=== PATIENT | female | born 1970 | race Hispanic/Latino ===

== ENCOUNTER 2018-06-03 09:47 | Inpatient (IN) | payer OTHER, SELFPAY ==
[2018-06-03 10:20] LABS: Basophils # (Auto) 0.1 K/mm3 (0.0-0.1); Basophils % (Auto) 0.6 % (0.0-1.8); Eosinophils % (Auto) 0.3 % (0.0-4.3); Hematocrit 38.1 % (30.3-42.9); Lymphocytes # (Auto) 1.6 K/mm3 (1.2-5.4); Lymphocytes % (Auto) 12.6 % (13.4-35.0); Mean Corpuscular HGB Conc 34 % (30-34); Mean Corpuscular Volume 104 fl (79-97); Monocytes # (Auto) 0.8 K/mm3 (0.0-0.8); Monocytes % (Auto) 6.4 % (0.0-7.3); Platelet Count 215 K/mm3 (140-440); Red Blood Count 3.66 M/mm3 (3.65-5.03)
[2018-06-03 10:44] LABS: BUN/Creatinine Ratio 8; Blood Urea Nitrogen 5 mg/dL (7-17); Calcium 9.2 mg/dL (8.4-10.2); Hemolysis Index 6
[2018-06-03] MEDS ORDERED: TESSALON PERLES PO ONE ×3 (11:16→11:55)
[2018-06-03] MEDS ORDERED: SUBLIMAZE IV ONE ×2 (11:16→12:36)
[2018-06-03] MEDS ORDERED: NACL 0.9% 1000 ML 1,000 ML IV ONE (11:16)
[2018-06-03] MEDS ORDERED: ZOFRAN IV ONE (11:16)
[2018-06-03] MEDS ORDERED: LEVAQUIN PO ONE (11:20)
[2018-06-03] MEDS ORDERED: TORADOL IV ONE (11:28)
--- NOTE | 2018-06-03 11:28 | Emergency Department Report ---
HPI - General Chief Complaint: Dyspnea/Respdistress Time Seen by Provider: 06/03/18 11:05 - HPI HPI: Room 22 The patient is a 48-year-old female presenting with a chief complaint of shortness of breath. The patient states for the past 2 days she has shortness of breath with pleurisy and cough. The patient states for the past 2 days she has had a cough occasionally productive of white sputum. Patient admits to subjective fever and sharp left-sided chest pain whenever she coughs. Patient states she has had rhinorrhea. Patient denies nausea/vomiting. Location: Lungs Duration: 2 Days Quality: Soreness Severity: 12/08 Modifying factors: [see above] Context: [see above] Mode of transportation: [not driving] ED Past Medical Hx - Past Medical History Previous Medical History?: Yes Hx Arthritis: Yes Hx Asthma: Yes - Surgical History Past Surgical History?: Yes Additional Surgical History: lumpectomy. bone spurs. tubal ligation. tonsillectomy - Family History Family history: no significant - Social History Smoking Status: Current Every Day Smoker (1/2 pack per day) Substance Use Type: None (denies illicit drug use), Alcohol ED Review of Systems ROS: Stated complaint: SEVERE PAIN RIB CAGE/CONGESTION/COLD SX Other details as noted in HPI Constitutional: diaphoresis, fever (subjective) Eyes: denies: eye pain ENT: denies: throat pain Respiratory: cough, shortness of breath Cardiovascular: denies: palpitations Endocrine: no symptoms reported Gastrointestinal: denies: abdominal pain Genitourinary: denies: dysuria Musculoskeletal: myalgia Neurological: denies: headache Physical Exam - Physical Exam Vital Signs: Vital Signs 06/03/18 06/03/18 06/03/18 09:58 11:02 11:03 Temperature 98.7 F 98.1 F Pulse Rate 120 H 108 H Respiratory 16 17 17 Rate Blood Pressure 126/66 Blood Pressure 124/76 [Left] O2 Sat by Pulse 97 96 96 Oximetry Physical Exam: GENERAL: The patient is well-developed well-nourished female lying on a stretcher appearing to be in mild discomfort. [] HEENT: Normocephalic. Atraumatic. Extraocular motions are intact. Patient has moist mucous membranes. NECK: Supple. Trachea midline CHEST/LUNGS: Clear to auscultation. There is no respiratory distress noted. HEART/CARDIOVASCULAR: Regular. There is tachycardia. There is no gallop rub or murmur. ABDOMEN: Abdomen is soft, nontender. Patient has normal bowel sounds. There is no abdominal distention. SKIN: There is no rash. There is no edema. There is no diaphoresis. NEURO: The patient is awake, alert, and oriented. The patient is cooperative. The patient has normal speech MUSCULOSKELETAL: There is no evidence of acute injury. ED Course Vital Signs 06/03/18 06/03/18 06/03/18 09:58 11:02 11:03 Temperature 98.7 F 98.1 F Pulse Rate 120 H 108 H Respiratory 16 17 17 Rate Blood Pressure 126/66 Blood Pressure 124/76 [Left] O2 Sat by Pulse 97 96 96 Oximetry - Reevaluation(s) Reevaluation #1: 06/03/18 12:34 Patient states she still has significant pain with inspiration. Patient gives her pain a score of 7/10. ED Medical Decision Making - Lab Data Result diagrams: 06/03/18 10:10 06/03/18 10:10 - EKG Data -: EKG Interpreted by Me EKG shows normal: sinus rhythm Rate: tachycardia (111 bpm) - EKG Data When compared to previous EKG there are: previous EKG unavailable Interpretation: other (no ischemic changes seen) - Radiology Data Radiology results: image reviewed (chest x-ray) interpreted by me: Chest x-ray- left lower lobe infiltrate - Differential Diagnosis pneumonia, pneumothorax, pleurisy Critical care attestation.: If time is entered above; I have spent that time in minutes in the direct care of this critically ill patient, excluding procedure time. ED Disposition Clinical Impression: Pneumonia, Pleurisy, Shortness of breath Disposition: OP ADMIT IP TO THIS HOSP Is pt being admited?: Yes Does the pt Need Aspirin: Yes Condition: Fair Instructions: Bacterial Pneumonia (ED) Referrals: LJ CAMPBELL [Primary Care Provider] - 3-5 Days Time of Disposition: 12:35 (hospitalist paged (Dr Bustamante))
[2018-06-03] MEDS ORDERED: SUBLIMAZE ONE (11:33)
[2018-06-03] MEDS ORDERED: NACL 0.9% 1000 ML 1,000 ML ONE (11:33)
[2018-06-03] MEDS ORDERED: ZOFRAN ONE ×2 (11:33→11:35)
[2018-06-03] MEDS ORDERED: TORADOL ONE (11:54)
[2018-06-03] MEDS ORDERED: LEVAQUIN ONE (11:57)
[2018-06-03] MEDS ORDERED: ASPIRIN PO ONE (12:35)
--- NOTE | 2018-06-03 14:05 | XRay Report ---
FINAL REPORT EXAM: XR CHEST ROUTINE 2V HISTORY: Shortness of breath TECHNIQUE: Chest, two views PRIORS: None. FINDINGS: There is left lower lobe infiltrate which is concerning for pneumonia. Right lung is clear. There is no cardiomegaly, congestion, pneumothorax or pleural effusion seen. IMPRESSION: Left lower lobe pneumonia
[2018-06-03] MEDS ORDERED: ZOFRAN IV PRN (14:21)
[2018-06-03] MEDS ORDERED: TYLENOL PO PRN (14:21)
[2018-06-03] MEDS ORDERED: SODIUM CHLORIDE FLUSH SYRINGE 10 ML IV PRN (14:21)
[2018-06-03] MEDS ORDERED: DUONEB *Not for PRN Use IH (14:23)
[2018-06-03] MEDS ORDERED: PROVENTIL IH PRN (14:51)
[2018-06-03] MEDS ORDERED: PEPCID IV ONE (15:09)
[2018-06-03] MEDS ORDERED: LOVENOX SUB-Q ONE (15:20)
[2018-06-03] MEDS: PEPCID IV SCH ×2 (15:26→21:44)
[2018-06-03] MEDS: LOVENOX SUB-Q SCH (15:26)
[2018-06-03] MEDS: ZITHROMAX 500 MG in NACL 0.9% 250ML 250 ML IV SCH (15:26)
[2018-06-03 16:12] LABS: Bacteria,Urine 1+ /HPF (Negative); Bilirubin,Urine NEG (Negative); Blood,Urine NEG (Negative); Color,Urine Yellow (Yellow); Mucus,Urine FEW /HPF; Protein,Urine <15 mg/dL mg/dL (Negative); Urobilinogen,Urine < 2.0 mg/dL (<2.0)
[2018-06-03] MEDS: NACL 0.9% 1000 ML 1,000 ML IV SCH (16:29)
[2018-06-03] MEDS: PERCOCET 5/325 PO PRN (16:57)
[2018-06-03] MEDS: ROCEPHIN/NS 2 GM/100 ML 2 GM/100 ML BAG IV SCH (16:58)
[2018-06-03] MEDS: SODIUM CHLORIDE FLUSH SYRINGE 10 ML IV SCH (21:44)
[2018-06-03] MEDS: DILAUDID IV PRN (21:44)
--- NOTE | 2018-06-04 01:05 | Event Note ---
Date: 06/03/18 See Dictated H/p in reports LLL Pneumonia COPD
--- NOTE | 2018-06-04 01:30 | History and Physical Report ---
CHIEF COMPLAINT: Increasing shortness of breath for the last 2 days and cough for 2 days, also fever for 2 days. HISTORY OF PRESENT ILLNESS: A 48-year-old with history of arthritis and asthma, presents with shortness of breath and left-sided chest pain and cough, also low-grade fever. Cough productive of mucoid sputum. The left infra-axillary chest pain, more on inspiration. Exacerbating factor is cough and inspiration. Relieving factor is less. No exertional chest pain. No chills. No recent travel. PAST MEDICAL HISTORY: Significant for arthritis and asthma. PAST SURGICAL HISTORY: Significant for lumpectomy, bone spurs tubal ligation and tonsillectomy. FAMILY HISTORY: No significant family history. SOCIAL HISTORY: Smokes over half a pack a day. REVIEW OF SYSTEMS: Significant for cough and fever and left infra-axillary region chest pain, which is more on breathing, taking deep inspiration. PHYSICAL EXAMINATION: GENERAL: Middle-aged female, cooperative during examination. VITAL SIGNS: Blood pressure was 121/67, temperature was 98.3, pulse is 120-99, sats are 99%. Respiratory rate is 16. HEENT: Unremarkable. Pupils equal and reactive. NECK: Supple, no lymphadenopathy, no thyromegaly. LUNGS: Scattered rhonchi bilaterally. CARDIOVASCULAR: S1, S2 heard. No gallop, no murmur, no rub. Apical impulse in left fifth intercostal space and midclavicular line. ABDOMEN: Soft and benign. No hepatosplenomegaly. No guarding, no rigidity. Hernial orifices are normal. EXTREMITIES: Good pedal pulses. No pedal edema. CENTRAL NERVOUS SYSTEM: Alert and oriented x 4, nonfocal exam. LABORATORY DATA: White count is 12,700, slightly high; hemoglobin is 13 and hematocrit is 38.1, platelet count is normal. Sodium is 133, slightly low, BUN and creatinine is 75 and 0.6, glucose is slightly high 115. Urine shows epithelial cells 21, otherwise normal. Chest x-ray shows left lower lobe infiltrate. ASSESSMENT AND PLAN: 1. Left lower lobe pneumonia. The patient initiated on ceftriaxone and azithromycin. 2. Chronic obstructive pulmonary disease exacerbation. The patient initiated on DuoNeb and antibiotics. No steroids at this point. 3. Hyperglycemia, mild. Check hemoglobin A1c. 4. Deep venous thrombosis prophylaxis, Lovenox and famotidine 20 mg twice a day. 5.Hyponatremia-Mild.Should correct with IV Fluids JOB# [id number] DELMER/VIKI VALENZUELA
[2018-06-04] MEDS: DILAUDID IV PRN (05:13)
[2018-06-04 06:01] LABS: Basophils % (Auto) 0.4 % (0.0-1.8); Eosinophils # (Auto) 0.1 K/mm3 (0.0-0.4); Eosinophils % (Auto) 0.9 % (0.0-4.3); Hematocrit 34.6 % (30.3-42.9); Hemoglobin 11.9 gm/dl (10.1-14.3); Lymphocytes # (Auto) 1.8 K/mm3 (1.2-5.4); Lymphocytes % (Auto) 24.9 % (13.4-35.0); Mean Corpuscular HGB Conc 35 % (30-34); Mean Corpuscular Volume 105 fl (79-97); Monocytes # (Auto) 0.4 K/mm3 (0.0-0.8); Monocytes % (Auto) 5.4 % (0.0-7.3); Platelet Count 200 K/mm3 (140-440); Red Cell Distribution Width 14.9 % (13.2-15.2)
[2018-06-04 06:27] LABS: Albumin 3.5 g/dL (3.9-5); BUN/Creatinine Ratio 12; Blood Urea Nitrogen 6 mg/dL (7-17); Calcium 8.7 mg/dL (8.4-10.2); Hemolysis Index 3
[2018-06-04 06:31] LABS: Alanine Aminotransferase < 5 units/L (7-56)
[2018-06-04] MEDS: NACL 0.9% 1000 ML 1,000 ML IV SCH (08:33)
[2018-06-04] MEDS: SODIUM CHLORIDE FLUSH SYRINGE 10 ML IV SCH ×2 (10:40→22:16)
[2018-06-04] MEDS: PEPCID IV SCH (10:40)
[2018-06-04] MEDS: PERCOCET 5/325 PO PRN ×2 (10:47→22:15)
[2018-06-04] MEDS ORDERED: PNEUMOVAX 23 IM ONE (12:00)
[2018-06-04] MEDS ORDERED: AFLURIA QUAD 2018-2019 SYRINGE IM ONE (12:00)
--- NOTE | 2018-06-04 13:05 | Progress Note ---
Assessment and Plan Sepsis, POA - due to LLL PNA, cont abx LLL PNA, cont abx COPD with mild exacerbation, treat with nebs, supplemental o2 Mild hyponatremia, treated with iv fluid Chronic back pain, pain mx as needed Obesity, provided dietary recommendation Dvt Px, lovenox Subjective Date of service: 06/04/18 Interval history: Pt seen and examined states feels better but has SOB on exertion also c/o chronic back pain Objective - Constitutional Vitals: Vital Signs - 12hr 06/04/18 06/04/18 05:13 05:43 Temperature 98.5 F Pulse Rate 105 H Respiratory 18 17 Rate Blood Pressure 108/57 O2 Sat by Pulse 95 Oximetry General appearance: Present: no acute distress, obese - EENT Eyes: PERRL, EOM intact ENT: hearing intact, clear oral mucosa Ears: bilateral: normal - Neck Neck: supple, normal ROM - Respiratory Respiratory effort: normal Respiratory: bilateral: diminished - Cardiovascular Rhythm: regular Heart Sounds: Present: S1 & S2. Absent: gallop, rub Extremities: pulses intact, No edema, normal color, Full ROM - Gastrointestinal General gastrointestinal: Present: soft, non-tender, non-distended, normal bowel sounds - Genitourinary Female genitourinary: normal - Integumentary Integumentary: clear, warm, dry - Musculoskeletal Musculoskeletal: 1, strength equal bilaterally - Neurologic Neurologic: moves all extremities - Psychiatric Psychiatric: memory intact, appropriate mood/affect, intact judgment & insight - Labs CBC & Chem 7: 06/04/18 05:24 06/04/18 05:24 Labs: Abnormal lab results 06/03/18 06/04/18 06/04/18 Range/Units Unknown 05:24 05:24 RBC 3.30 L (3.65-5.03) M/mm3 MCV 105 H (79-97) fl MCH 36 H (28-32) pg MCHC 35 H (30-34) % Potassium 3.5 L (3.6-5.0) mmol/L BUN 6 L (7-17) mg/dL Creatinine 0.5 L (0.7-1.2) mg/dL Glucose 101 H (65-100) mg/dL ALT < 5 L (7-56) units/L Albumin 3.5 L (3.9-5) g/dL U Epithel Cells (Auto) 21.0 H (0-13.0) /HPF
[2018-06-04] MEDS ORDERED: K-DUR PO ONE ×2 (13:06→16:30)
[2018-06-04] MEDS: LOVENOX SUB-Q SCH (16:09)
[2018-06-04] MEDS: ROCEPHIN/NS 2 GM/100 ML 2 GM/100 ML BAG IV SCH (16:09)
[2018-06-04] MEDS: ZITHROMAX 500 MG in NACL 0.9% 250ML 250 ML IV SCH (18:32)
[2018-06-04] MEDS: PEPCID PO SCH (22:15)
[2018-06-04] MEDS ORDERED: PERCOCET 5/325 PO PRN (23:45)
[2018-06-05] MEDS ORDERED: K-DUR PO ONE (09:00)
[2018-06-05] MEDS: PEPCID PO SCH (10:54)
[2018-06-05] MEDS: SODIUM CHLORIDE FLUSH SYRINGE 10 ML IV SCH (10:54)
[2018-06-05 13:39] VITALS: BP 125/58
--- NOTE | 2018-06-05 14:46 | Discharge Summary ---
Providers - Providers Date of Admission: 06/03/18 14:21 Date of discharge: 06/05/18 Attending physician: GADIEL CERVANTES Primary care physician: LJ CAMPBELL Hospitalization Condition: Fair Pertinent studies: CXR - LLL PNA Hospital course: The patient is a 48-year-old female presenting with a chief complaint of shortness of breath for past two days along with cough , subjective fever and sharp left-sided chest pain whenever she coughs. Patient also had rhinorrhea. Her xry showed LLL PNA. She was admitted for further evaluation and management. Discharge diagnosis and management: Sepsis, POA - due to LLL PNA, treated with abx LLL PNA, treated with abx COPD with mild exacerbation, treated with nebs, supplemental o2 Mild hyponatremia, treated with iv fluid Chronic back pain due to osteoarthritis, given pain mx as needed Obesity, provided dietary recommendation Dvt Px, lovenox Disposition: DC- TO HOME OR SELFCARE Time spent for discharge: 34 minutes Core Measure Documentation - Palliative Care Palliative Care/ Comfort Measures: Not Applicable - Core Measures Any of the following diagnoses?: none Exam - Constitutional Vitals: Temp Pulse Resp BP Pulse Ox 99.0 F 87 20 125/58 94 06/05/18 13:06 06/05/18 13:06 06/05/18 13:06 06/05/18 13:06 06/05/18 13:06 General appearance: Present: no acute distress, obese - EENT Eyes: Present: PERRL ENT: hearing intact, clear oral mucosa - Neck Neck: Present: supple, normal ROM - Respiratory Respiratory effort: normal Respiratory: bilateral: CTA - Cardiovascular Heart Sounds: Present: S1 & S2. Absent: rub, click - Extremities Extremities: pulses symmetrical, No edema Peripheral Pulses: within normal limits - Abdominal General gastrointestinal: Present: soft, non-tender, non-distended, normal bowel sounds - Integumentary Integumentary: Present: clear, warm, dry - Musculoskeletal Musculoskeletal: gait normal, strength equal bilaterally - Psychiatric Psychiatric: appropriate mood/affect, intact judgment & insight - Neurologic Neurologic: CNII-XII intact, moves all extremities Plan Activity: advance as tolerated Weight Bearing Status: Weight Bear as Tolerated Diet: low fat, low salt Follow up with: LJ CAMPBELL MD [Primary Care Provider] - 3-5 Days Prescriptions: ALBUTEROL Inhaler (OR & NICU) [Proair] 2 puff IH QID PRN 30 Days inhalation PRN Reason: Shortness Of Breath Azithromycin [Zithromax TAB] 500 mg PO QDAY #4 tablet oxyCODONE /ACETAMINOPHEN [Percocet 5/325 mg] 2 tab PO Q6H PRN #10 tablet PRN Reason: Pain, Moderate (4-6) predniSONE [Deltasone] 20 mg PO QDAY #5 tab
[2018-06-05] MEDS: ZITHROMAX 500 MG in NACL 0.9% 250ML 250 ML IV SCH (16:32)
[2018-06-05] MEDS: ROCEPHIN/NS 2 GM/100 ML 2 GM/100 ML BAG IV SCH (18:24)
[2018-06-05] MEDS: LOVENOX SUB-Q SCH (18:27)
== END 2018-06-05 19:29 | disposition home or self-care (01) | DRG 871 ==
LOC: ED 09:47 → 3A 14:21
PROVIDERS: ADMIT Internal Medicine; ATTEND Internal Medicine
PROC: 3E0234Z Introduction of Serum, Toxoid and Vaccine into Muscle, Percutaneous Approach (ICD-10-PCS; principal; 2018-06-04)
DX: A41.9 Sepsis, unspecified organism (principal); J18.1 Lobar pneumonia, unspecified organism; J44.0 Chronic obstructive pulmonary disease with (acute) lower respiratory infection; J44.1 Chronic obstructive pulmonary disease with (acute) exacerbation; E87.1 Hypo-osmolality and hyponatremia; G89.29 Other chronic pain; M54.9 Dorsalgia, unspecified; M19.90 Unspecified osteoarthritis, unspecified site; E66.9 Obesity, unspecified; R09.1 Pleurisy; F17.200 Nicotine dependence, unspecified, uncomplicated; R73.9 Hyperglycemia, unspecified; Z68.37 Body mass index [BMI] 37.0-37.9, adult; Z71.3 Dietary counseling and surveillance; Z98.51 Tubal ligation status; Z23 Encounter for immunization
CPT/HCPCS: 36415; 71046; 80048; 80053; 81001; 83036; 84484; 84703; 85025; 87040; 90686; 90732; 93005; 93010; 99406; G0378; J0456; J0696; J1170; J1650; J1885; J2405; J3010; J7030; J7050

== ENCOUNTER 2018-09-24 11:24 | Emergency (ER) | payer OTHER, SELFPAY ==
--- NOTE | 2018-09-24 11:53 | Emergency Department Report ---
Chief Complaint: Headache Stated Complaint: PASSING OUT/EAR PAIN/HEAD PAIN Time Seen by Provider: 09/24/18 11:48 - HPI History of Present Illness: This is a 48 y.o. F that presents to the ER with headache, global pressure and bilateral ears. Reports syncopal episode last night. LMP 2 months ago Occasional marijuana smoker. - Exam Vital Signs: Vital Signs 09/24/18 11:48 Temperature 97.6 F Pulse Rate 94 H Respiratory 20 Rate Blood Pressure 122/71 [Right] O2 Sat by Pulse 100 Oximetry MSE screening note: Focused history and physical exam performed. Due to findings the following was ordered: CT of head ED Disposition for MSE Condition: Stable
--- NOTE | 2018-09-24 13:58 | Cat Scan Report ---
CT HEAD WITHOUT CONTRAST: HISTORY: Headache. TECHNIQUE: Sequential 2.5mm CT images. COMPARISON: none. FINDINGS: Cerebral Parenchyma: Within normal limits. Cerebellum: Within normal limits. Brainstem: Within normal limits. Ventricles: Normal. Sella: Normal. Extra-axial spaces: Normal. Basal Cisterns: Normal. Intracranial Hemorrhage: None. Midline Shift: None. Calvarium: Normal. Sinuses: Normal. Mastoid Air Cells: Normal. Visualized Orbits: Normal. IMPRESSION: Cranial CT scan within normal limits.
[2018-09-24] MEDS ORDERED: PROVENTIL IH ONE (14:12)
[2018-09-24] MEDS ORDERED: HABITROL TD ONE (14:12)
[2018-09-24] MEDS ORDERED: IBUPROFEN PO ONE (14:12)
--- NOTE | 2018-09-24 14:14 | Emergency Department Report ---
ED General Adult HPI - General Chief complaint: Headache Stated complaint: PASSING OUT/EAR PAIN/HEAD PAIN Time Seen by Provider: 09/24/18 11:48 Source: patient, RN notes reviewed, old records reviewed Mode of arrival: Ambulatory Limitations: No Limitations - History of Present Illness Initial comments: This is a 48-year-old female. The patient is not known to this provider previously. She does not have a primary care doctor that she is aware of. She reports that she is not . She reports that she may have a history of COPD. The patient is a chronic tobacco smoker for the past 33 years. The patient presents to the emergency room with a complaint of head pressure, bilateral ear pressure, and sensation of dizziness and loss of consciousness associated with coughing. The symptoms have been going on since June. They're intermittent. They are associated with coughing spells. When the patient is not coughing, she reports that she does not feel like she is going to lose consciousness. She has a chronic cough. She denies chest pain. She denies shortness of breath. She has chronic left-sided knee pain. She states she is interested in stopping smoking. The patient reports a recent road trip to [facility]. However, it was less than 4 hours. There is no posterior leg pain. There is no posterior leg swelling. She reports that she was coughing so violently yesterday that she temporarily lost consciousness. However, she did not fall or hit her head. This is corroborated by her significant other. The patient denies recent motor vehicle accident, fender larry, chiropractic manipulation. -: Sudden, days(s), week(s), month(s) Location: left, lower extremity (chronic left knee pain, sharp, increases with palpation, decreases with rest) Severity scale (0 -10): 0 - Related Data Previous Rx's Medication Instructions Recorded Last Taken Type ALBUTEROL Inhaler (OR & NICU) 2 puff IH QID PRN 30 Days 06/05/18 Unknown Rx [Proair] inhalation Azithromycin [Zithromax TAB] 500 mg PO QDAY #4 tablet 06/05/18 Unknown Rx oxyCODONE /ACETAMINOPHEN [Percocet 2 tab PO Q6H PRN #10 tablet 06/05/18 Unknown Rx 5/325 mg] predniSONE [Deltasone] 20 mg PO QDAY #5 tab 06/05/18 Unknown Rx Acetaminophen [Non-Aspirin Extra 500 mg PO Q6HR PRN #30 tablet 09/24/18 Unknown Rx Strength] Albuterol Sulfate [Proair 90 mcg IH Q4HR PRN #2 aer.pow.ba 09/24/18 Unknown Rx Respiclick] Benzonatate [Tessalon Perles] 100 mg PO Q8HR PRN #30 capsule 09/24/18 Unknown Rx Fluticasone [Flonase] 1 spray NS QDAY #1 bottle 09/24/18 Unknown Rx Ibuprofen [Motrin] 600 mg PO Q8H PRN #30 tablet 09/24/18 Unknown Rx Nicotine [Habitrol] 21 mg TD DAILY #30 patch 09/24/18 Unknown Rx Salmeterol Xinafoate [Serevent 50 mcg IH BID #1 blst.w.dev 09/24/18 Unknown Rx Diskus] Allergies Allergy/AdvReac Type Severity Reaction Status Date / Time No Known Allergies Allergy Verified 09/24/18 11:55 ED Review of Systems ROS: Stated complaint: PASSING OUT/EAR PAIN/HEAD PAIN Other details as noted in HPI Constitutional: denies: fever Eyes: denies: eye discharge Respiratory: cough Cardiovascular: syncope. denies: chest pain Gastrointestinal: denies: vomiting Genitourinary: denies: dysuria Musculoskeletal: arthralgia, myalgia Skin: denies: lesions Neurological: headache, weakness Psychiatric: anxiety ED Past Medical Hx - Past Medical History Hx Congestive Heart Failure: No Hx Diabetes: No Hx Arthritis: Yes Hx Asthma: Yes Hx COPD: No - Surgical History Additional Surgical History: lumpectomy. bone spurs. tubal ligation. tonsillectomy - Social History Smoking Status: Current Every Day Smoker Substance Use Type: Alcohol, Marijuana - Medications Home Medications: Home Medications Medication Instructions Recorded Confirmed Last Taken Type ALBUTEROL Inhaler (OR & NICU) 2 puff IH QID PRN 30 Days 06/05/18 Unknown Rx [Proair] inhalation Azithromycin [Zithromax TAB] 500 mg PO QDAY #4 tablet 06/05/18 Unknown Rx oxyCODONE /ACETAMINOPHEN [Percocet 2 tab PO Q6H PRN #10 tablet 06/05/18 Unknown Rx 5/325 mg] predniSONE [Deltasone] 20 mg PO QDAY #5 tab 02/05/19 Unknown Rx Acetaminophen [Non-Aspirin Extra 500 mg PO Q6HR PRN #30 tablet 09/24/18 Unknown Rx Strength] Albuterol Sulfate [Proair 90 mcg IH Q4HR PRN #2 aer.pow.ba 09/24/18 Unknown Rx Respiclick] Benzonatate [Tessalon Perles] 100 mg PO Q8HR PRN #30 capsule 09/24/18 Unknown Rx Fluticasone [Flonase] 1 spray NS QDAY #1 bottle 09/24/18 Unknown Rx Ibuprofen [Motrin] 600 mg PO Q8H PRN #30 tablet 09/24/18 Unknown Rx Nicotine [Habitrol] 21 mg TD DAILY #30 patch 09/24/18 Unknown Rx Salmeterol Xinafoate [Serevent 50 mcg IH BID #1 blst.w.dev 09/24/18 Unknown Rx Diskus] ED Physical Exam - General Limitations: No Limitations General appearance: alert, in no apparent distress - Head Head exam: Present: atraumatic, normocephalic - Eye Eye exam: Present: normal appearance, PERRL, EOMI, other (visual acuity intact to finger counting, color perception, reading at a close distance). Absent: nystagmus - ENT ENT exam: Present: normal exam, normal orophraynx, mucous membranes moist, TM's normal bilaterally, normal external ear exam, other (there is no mastoid tenderness) - Neck Neck exam: Present: normal inspection, full ROM. Absent: tenderness, meningismus - Respiratory Respiratory exam: Present: normal lung sounds bilaterally. Absent: respiratory distress - Cardiovascular Cardiovascular Exam: Present: regular rate, normal rhythm, normal heart sounds. Absent: irregular rhythm, systolic murmur, diastolic murmur, rubs, gallop - GI/Abdominal GI/Abdominal exam: Present: soft. Absent: distended, tenderness, guarding, rebound, rigid, pulsatile mass - Extremities Exam Extremities exam: Present: normal inspection, full ROM, tenderness (there is left sided lateral and medial joint line tenderness in the left knee. There is no redness, pus or streaking.), other (2+ pulses noted in the bilateral upper, lower extremities. Compartments soft. No long bony tenderness. The pelvis is stable.). Absent: calf tenderness - Back Exam Back exam: Present: normal inspection, full ROM. Absent: tenderness, CVA tenderness (R), CVA tenderness (L), paraspinal tenderness, vertebral tenderness - Neurological Exam Neurological exam: Present: alert, oriented X3, normal gait (there is no past- pointing. There is normal [id number]. There is negative pronator drift.), other (Extraocular movements intact. Tongue midline. No facial droop. Facial sensation intact to light touch in the V1, V2, V3 distribution bilaterally. 5 and 5 strength in 4 extremities.. Sensation is intact to light touch in 4 extremities.). Absent: motor sensory deficit - Psychiatric Psychiatric exam: Present: normal affect, normal mood - Skin Skin exam: Present: warm, dry, intact, normal color. Absent: rash ED Course Vital Signs 09/24/18 09/24/18 09/24/18 11:48 12:48 12:53 Temperature 97.6 F Pulse Rate 94 H 83 Pulse Rate [ Anterior Bilateral] Respiratory 20 18 20 Rate Respiratory Rate [Anterior Bilateral] Blood Pressure Blood Pressure 122/71 [Right] O2 Sat by Pulse 100 97 100 Oximetry 09/24/18 09/24/18 09/24/18 13:00 14:23 14:30 Temperature Pulse Rate 79 92 H Pulse Rate [ 82 Anterior Bilateral] Respiratory 12 11 L Rate Respiratory 13 Rate [Anterior Bilateral] Blood Pressure 123/61 120/50 Blood Pressure [Right] O2 Sat by Pulse 97 100 Oximetry 09/24/18 09/24/18 09/24/18 14:33 15:00 15:30 Temperature Pulse Rate 98 H 95 H Pulse Rate [ 95 H Anterior Bilateral] Respiratory 15 16 Rate Respiratory 20 Rate [Anterior Bilateral] Blood Pressure 125/48 109/54 Blood Pressure [Right] O2 Sat by Pulse 96 95 Oximetry ED Medical Decision Making - Lab Data Result diagrams: 09/24/18 14:20 09/24/18 14:20 Vital Signs 09/24/18 09/24/18 09/24/18 11:48 12:48 12:53 Temperature 97.6 F Pulse Rate 94 H 83 Pulse Rate [ Anterior Bilateral] Respiratory 20 18 20 Rate Respiratory Rate [Anterior Bilateral] Blood Pressure Blood Pressure 122/71 [Right] O2 Sat by Pulse 100 97 100 Oximetry 09/24/18 09/24/18 09/24/18 13:00 14:23 14:30 Temperature Pulse Rate 79 92 H Pulse Rate [ 82 Anterior Bilateral] Respiratory 12 11 L Rate Respiratory 13 Rate [Anterior Bilateral] Blood Pressure 123/61 120/50 Blood Pressure [Right] O2 Sat by Pulse 97 100 Oximetry 09/24/18 09/24/18 09/24/18 14:33 15:00 15:30 Temperature Pulse Rate 98 H 95 H Pulse Rate [ 95 H Anterior Bilateral] Respiratory 15 16 Rate Respiratory 20 Rate [Anterior Bilateral] Blood Pressure 125/48 109/54 Blood Pressure [Right] O2 Sat by Pulse 96 95 Oximetry Lab Results 09/24/18 09/24/18 09/24/18 Range/Units 14:20 14:20 14:20 WBC 9.1 (4.5-11.0) K/mm3 RBC 3.85 (3.65-5.03) M/mm3 Hgb 13.6 (10.1-14.3) gm/dl Hct 39.4 (30.3-42.9) % MCV 102 H (79-97) fl MCH 35 H (28-32) pg MCHC 35 H (30-34) % RDW 14.6 (13.2-15.2) % Plt Count 269 (140-440) K/mm3 PT 12.8 (12.2-14.9) Sec. INR 0.91 (0.87-1.13) D-Dimer 168.71 (0-234) ng/mlDDU Sodium 134 L (137-145) mmol/L Potassium 4.5 (3.6-5.0) mmol/L Chloride 97.4 L (98-107) mmol/L Carbon Dioxide 25 (22-30) mmol/L Anion Gap 16 mmol/L BUN 8 (7-17) mg/dL Creatinine 0.6 L (0.7-1.2) mg/dL Estimated GFR > 60 ml/min BUN/Creatinine Ratio 13 % Glucose 97 (65-100) mg/dL Calcium 9.3 (8.4-10.2) mg/dL Magnesium 1.90 (1.7-2.3) mg/dL Total Creatine Kinase 48 (30-135) units/L Troponin T < 0.010 (0.00-0.029) ng/mL - EKG Data -: EKG Interpreted by Co EKG shows normal: sinus rhythm, axis, intervals, QRS complexes, ST-T waves Rate: normal - EKG Data When compared to previous EKG there are: no significant change Interpretation: no acute changes 09/24/18 15:59 EKG today shows a sinus rhythm, 90 bpm, normal axis, normal intervals, borderline poor R-wave progression, this EKG is not consistent with ST elevation myocardial infarction, it appears to be unchanged compared to prior EKG from 06/03/2018 - Radiology Data Radiology results: pending, report reviewed, image reviewed Noncontrast CT scan of the brain is negative for acute disease. - Medical Decision Making Differential diagnosis, including not limited to: Orthostasis, vagal event, structural cardiac disease, pulmonary embolus, bronchitis, COPD, chronic left- sided knee pain Assessment and plan: 48-year-old female with chronic cough, reported syncope/near syncope only associated with cough, chronic tobacco user, suspect underlying COPD, cough, bronchitis, with superimposed vagal event/cough. The patient is observed in the emergency room for greater than 4 hours without clinical decompensation. She is low risk by well's criteria, not tachycardic, not hypoxic, perc negative Her EKG is morphologically unchanged from prior. Troponin negative 1, low risk for major adverse cardiac event, low risk by the heart score. I have recommended the patient discontinued tobacco consumption. She is motivated to discontinue tobacco consumption. She is counseled to not drive or operate motor vehicles for the next 6 months. She will be started on albuterol, nicotine patch, as stated ibuprofen, Tylenol for pain, and we will start her on a long-term maintenance inhaler for presumed COPD. However, she will need to follow up with outpatient pulmonology for forma l pulmonary function testing. She'll need to follow up with outpatient cardiology for history of syncope. Critical care attestation.: If time is entered above; I have spent that time in minutes in the direct care of this critically ill patient, excluding procedure time. ED Disposition Clinical Impression: History of cough, Left knee pain, History of syncope Disposition: [id number] TO HOME OR SELFCARE Is pt being admited?: No Does the pt Need Aspirin: No Condition: Good Additional Instructions: Do not drive or operate motor vehicles next 6 months, until cleared by either her primary care doctor, or stick feeder. The patient most likely has COPD/early emphysema. However, the patient will need to have formal pulmonary function testing performed to definitively make the diagnosis. The patient may follow up with a primary care doctor or product delivery specialist to have outpatient pulmonary testing done. Local product delivery specialist include Dr. Masters, Dr. Montes De Oca The patient should follow-up with her primary care doctor or stick feeder for evaluation of passing out within the next 3-5 days. Patient may contact any of the local cardiology practices to arrange outpatient follow-up. I recommended the patient make every attempt to discontinue tobacco consumption. Tobacco consumption is the most likely reason for the patients cough, and subsequently, the most likely reason for the patient passing out secondary to cough. Discontinuation of tobacco consumption has been a long-term health benefits, including the risk of heart attack, stroke, disability. Take medications as needed/directed. Rest, avoid heavy lifting, and avoid strenuous physical activities. Return to the emergency room right away with new pain, worsened pain, migration of pain, projectile vomiting, change in mental status, confusion, inability to tolerate liquid feeds, new, worsening or different symptoms not present on the initial ER evaluation. He is the maintenance medications as directed. To find affordable prescriptions, the patient may download the " [place] rx " application on her Smart phone device, and find prescriptions affordably based off of G graphic location and ZIP Code. Prescriptions: Fluticasone [Flonase] 1 spray NS QDAY #1 bottle Nicotine [Habitrol] 21 mg TD DAILY #30 patch Ibuprofen [Motrin] 600 mg PO Q8H PRN #30 tablet PRN Reason: Pain Acetaminophen [Non-Aspirin Extra Strength] 500 mg PO Q6HR PRN #30 tablet PRN Reason: Pain , Severe (7-10) Albuterol Sulfate [Proair Respiclick] 90 mcg IH Q4HR PRN #2 aer.pow.ba PRN Reason: Wheezing Salmeterol Xinafoate [Serevent Diskus] 50 mcg IH BID #1 blst.w.dev Benzonatate [Tessalon Perles] 100 mg PO Q8HR PRN #30 capsule PRN Reason: Cough Referrals: PRIMARY CARE, [Primary Care Provider] - 3-5 Days CHARLES MONTES DE OCA MD [Staff Physician] - 3-5 Days JESSICA MASTERS MD [Staff Physician] - 3-5 Days [facility] [Provider Group] - 3-5 Days [facility] [Provider Group] - 3-5 Days [facility] [Provider Group] - 3-5 Days
[2018-09-24 14:33] LABS: Hematocrit 39.4 % (30.3-42.9); Hemoglobin 13.6 gm/dl (10.1-14.3); Mean Corpuscular HGB Conc 35 % (30-34); Mean Corpuscular Volume 102 fl (79-97); Platelet Count 269 K/mm3 (140-440); Red Blood Count 3.85 M/mm3 (3.65-5.03); Red Cell Distribution Width 14.6 % (13.2-15.2)
[2018-09-24 14:44] LABS: INR 0.91 (0.87-1.13)
[2018-09-24 14:52] LABS: BUN/Creatinine Ratio 13; Blood Urea Nitrogen 8 mg/dL (7-17); Calcium 9.3 mg/dL (8.4-10.2); Hemolysis Index 13
[2018-09-24 16:31] VITALS: BP 101/60
== END 2018-09-24 16:31 | disposition home or self-care (01) ==
LOC: ED 11:24
DX: R51 Headache (principal); R42 Dizziness and giddiness; R05 Cough; M25.562 Pain in left knee; R55 Syncope and collapse; M19.90 Unspecified osteoarthritis, unspecified site; F17.200 Nicotine dependence, unspecified, uncomplicated; F12.10 Cannabis abuse, uncomplicated; J45.909 Unspecified asthma, uncomplicated; Z98.51 Tubal ligation status; Z90.89 Acquired absence of other organs
CPT/HCPCS: 36415; 70450; 80048; 82550; 83735; 84484; 85027; 85379; 85610; 93005; 93010; 94640

== ENCOUNTER 2019-03-10 05:14 | Emergency (ER) | payer SELFPAY ==
[2019-03-10 05:20] VITALS: BP 144/68
--- NOTE | 2019-03-10 07:10 | XRay Report ---
RIGHT ANKLE, 3 VIEWS INDICATION / CLINICAL INFORMATION: Pain/swelling. COMPARISON: None available. FINDINGS: No fracture or dislocation. Mild degenerative changes are present throughout the ankle. Mild soft tis israel swelling is noted diffusely. Small calcaneal spur. IMPRESSION: Nonspecific mild soft tissue swelling. No fracture or dislocation. Signer Name: Aida Green MD Signed: 03/10/2019 7:06 AM Workstation Name: [id number]
[2019-03-10] MEDS ORDERED: HYDROcodone/ACETAMINOPHEN 10-325MG TAB PO ONE (08:09)
--- NOTE | 2019-03-10 08:17 | Emergency Department Report ---
ED Lower Extremity HPI - General Chief Complaint: Extremity Injury, Lower Stated Complaint: RIGHT FOOT/ANKLE PAIN Time Seen by Provider: 03/10/19 07:58 Source: patient Mode of arrival: Ambulatory Limitations: No Limitations - History of Present Illness Initial Comments: This is a 48-year-old female nontoxic, well nourished in appearance, no acute signs of distress presents to the ED with c/o of right ankle pain 3 days. Patient stated that she was cleaning her car garage and later that night started to have pain. Patient denies any other trauma. Patient denies any numbness, tingling, fever, chills, nausea, vomiting, chest pain, shortness of breath, headache, stiff neck. Patient denies any joint swelling or joint redness. Patient denies decreased range of motion. Patient stated has decreased gait due to pain. Patient denies any allergies. MD Complaint: ankle injury -: days(s) (3) Injury: Ankle: Right Severity: mild Severity scale (0 -10): 8 Improves With: immobilization Worsens With: weight bearing, movement, palpation Associated Symptoms: swelling, able to partially bear weight, ambulatory. denies: snap/pop sensation, numbness, tingling, unable to bear weight - Related Data Previous Rx's Medication Instructions Recorded Last Taken Type ALBUTEROL Inhaler (OR & NICU) 2 puff IH QID PRN 30 Days 06/05/18 Unknown Rx [Proair] inhalation Azithromycin [Zithromax TAB] 500 mg PO QDAY #4 tablet 06/05/18 Unknown Rx oxyCODONE /ACETAMINOPHEN [Percocet 2 tab PO Q6H PRN #10 tablet 06/05/18 Unknown Rx 5/325 mg] predniSONE [Deltasone] 20 mg PO QDAY #5 tab 06/05/18 Unknown Rx Acetaminophen [Non-Aspirin Extra 500 mg PO Q6HR PRN #30 tablet 09/24/18 Unknown Rx Strength] Albuterol Sulfate [Proair 90 mcg IH Q4HR PRN #2 aer.pow.ba 09/24/18 Unknown Rx Respiclick] Benzonatate [Tessalon Perles] 100 mg PO Q8HR PRN #30 capsule 09/24/18 Unknown Rx Fluticasone [Flonase] 1 spray NS QDAY #1 bottle 09/24/18 Unknown Rx Ibuprofen [Motrin] 600 mg PO Q8H PRN #30 tablet 09/24/18 Unknown Rx Nicotine [Habitrol] 21 mg TD DAILY #30 patch 09/24/18 Unknown Rx Salmeterol Xinafoate [Serevent 50 mcg IH BID #1 blst.w.dev 09/24/18 Unknown Rx Diskus] Acetaminophen/Codeine [Tylenol 1 tab PO Q6H PRN #12 tab 03/10/19 Unknown Rx /Codeine # 3 tab] Allergies Allergy/AdvReac Type Severity Reaction Status Date / Time No Known Allergies Allergy Verified 09/24/18 11:55 ED Review of Systems ROS: Stated complaint: RIGHT FOOT/ANKLE PAIN Other details as noted in HPI Constitutional: denies: chills, fever Eyes: denies: eye pain, eye discharge, vision change ENT: denies: ear pain, throat pain Respiratory: denies: cough, shortness of breath, wheezing Cardiovascular: denies: chest pain, palpitations Endocrine: no symptoms reported Gastrointestinal: denies: abdominal pain, nausea, diarrhea Genitourinary: denies: urgency, dysuria, discharge Musculoskeletal: denies: back pain, joint swelling, arthralgia Skin: denies: rash, lesions Neurological: denies: headache, weakness, paresthesias Psychiatric: denies: anxiety, depression Hematological/Lymphatic: denies: easy bleeding, easy bruising ED Past Medical Hx - Past Medical History Previous Medical History?: Yes Hx Congestive Heart Failure: No Hx Diabetes: No Hx Arthritis: Yes Hx Asthma: Yes Hx COPD: No - Surgical History Past Surgical History?: Yes Additional Surgical History: lumpectomy. bone spurs. tubal ligation. tonsillectomy - Social History Smoking Status: Current Every Day Smoker Substance Use Type: Alcohol, Marijuana - Medications Home Medications: Home Medications Medication Instructions Recorded Confirmed Last Taken Type ALBUTEROL Inhaler (OR & NICU) 2 puff IH QID PRN 30 Days 06/05/18 Unknown Rx [Proair] inhalation Azithromycin [Zithromax TAB] 500 mg PO QDAY #4 tablet 06/05/18 Unknown Rx oxyCODONE /ACETAMINOPHEN [Percocet 2 tab PO Q6H PRN #10 tablet 06/05/18 Unknown Rx 5/325 mg] predniSONE [Deltasone] 20 mg PO QDAY #5 tab 06/05/18 Unknown Rx Acetaminophen [Non-Aspirin Extra 500 mg PO Q6HR PRN #30 tablet 09/24/18 Unknown Rx Strength] Albuterol Sulfate [Proair 90 mcg IH Q4HR PRN #2 aer.pow.ba 09/24/18 Unknown Rx Respiclick] Benzonatate [Tessalon Perles] 100 mg PO Q8HR PRN #30 capsule 09/24/18 Unknown Rx Fluticasone [Flonase] 1 spray NS QDAY #1 bottle 09/24/18 Unknown Rx Ibuprofen [Motrin] 600 mg PO Q8H PRN #30 tablet 09/24/18 Unknown Rx Nicotine [Habitrol] 21 mg TD DAILY #30 patch 09/24/18 Unknown Rx Salmeterol Xinafoate [Serevent 50 mcg IH BID #1 blst.w.dev 09/24/18 Unknown Rx Diskus] Acetaminophen/Codeine [Tylenol 1 tab PO Q6H PRN #12 tab 03/10/19 Unknown Rx /Codeine # 3 tab] ED Physical Exam - General Limitations: No Limitations General appearance: alert, in no apparent distress - Head Head exam: Present: atraumatic, normocephalic - Extremities Exam Extremities exam: Present: normal inspection, full ROM, tenderness, normal capillary refill. Absent: joint swelling, calf tenderness - Expanded Lower Extremity Exam Right Hip exam: Present: normal inspection, full ROM. Absent: tenderness Upper Leg exam: Present: normal inspection, full ROM. Absent: tenderness Knee exam: Present: normal inspection, full ROM. Absent: tenderness, swelling Lower Leg exam: Present: normal inspection, full ROM. Absent: tenderness, swelling Ankle exam: Present: normal inspection, full ROM, tenderness, swelling. Absent: abrasion, laceration, ecchymosis, deformity, crepidus, dislocation, erythema, anterior draw sign Foot/Toe exam: Present: normal inspection, full ROM. Absent: tenderness, swelling Neuro vascular tendon exam: Present: no vascular compromise Gait: Positive: observed and limited by pain - Back Exam Back exam: Present: normal inspection, full ROM - Neurological Exam Neurological exam: Present: alert, oriented X3, normal gait - Psychiatric Psychiatric exam: Present: normal affect, normal mood - Skin Skin exam: Present: warm, dry, intact, normal color. Absent: rash ED Course Vital Signs 03/10/19 05:19 Temperature 98.6 F Pulse Rate 95 H Respiratory 20 Rate Blood Pressure 144/68 O2 Sat by Pulse 97 Oximetry - Reevaluation(s) Reevaluation #1: 03/10/19 08:15 Patient is speaking in full sentences with no signs of distress noted. ED Lower Extremity MDM - Medical Decision Making This is a 48-year-old female that presents with left ankle sprain. Patient is stable and was examined by me. I referred patient to an orthopedic doctor for further evaluation for possible MRI. X-ray has been obtained and dictated by the radiologist. Patient is notified of the x-ray report with noted by the patient. Patient does have normal gait with no tenderness and no joint swelling. No ecchymosis. no joint redness or swelling. Not warm to touch. No signs of cellulites present. Patient received a ankle stirrup and walker. Patient was instructed to RICE therapy. Patient received Zuni for pain in the ER and will drive patient home after discharge due to possible drowsiness. Patient is discharged with Motrin. At time of discharge, the patient does not seem toxic or ill in appearance. No acute signs of distress noted. Patient agrees to discharge treatment plan of care. No further questions noted by the patient. Critical care attestation.: If time is entered above; I have spent that time in minutes in the direct care of this critically ill patient, excluding procedure time. ED Disposition Clinical Impression: Right ankle sprain Qualifiers: Encounter type: initial encounter Involved ligament of ankle: unspecified ligament Qualified Code(s): S93.401A - Sprain of unspecified ligament of right ankle, initial encounter Disposition: TO HOME OR SELFCARE Is pt being admited?: No Does the pt Need Aspirin: No Condition: Stable Instructions: Ankle Sprain (ED), Ankle Stirrup Splint (ED), Crutch Instructions (ED), Acetaminophen/Codeine (By mouth) Additional Instructions: Follow-up with a orthopedic doctor in 3-5 days or if symptoms worsen and continue return to emergency room as soon as possible. Do not operate any machinery while taking Tylenol with codeine as this may cause drowsiness. Prescriptions: Acetaminophen/Codeine [Tylenol /Codeine # 3 tab] 1 tab PO Q6H PRN #12 tab PRN Reason: Pain , Severe (7-10) Referrals: PRIMARY CARE, [Primary Care Provider] - 3-5 Days AMANDA LOPEZ MD [Staff Physician] - 3-5 Days [facility] [Outside] - 3-5 Days Forms: Work/School Release Form(ED)
== END 2019-03-10 08:47 | disposition home or self-care (01) ==
LOC: ED 05:14
DX: S93.401A Sprain of unspecified ligament of right ankle, initial encounter (principal); J45.909 Unspecified asthma, uncomplicated; M19.90 Unspecified osteoarthritis, unspecified site; F17.200 Nicotine dependence, unspecified, uncomplicated; Z90.89 Acquired absence of other organs; Z98.51 Tubal ligation status; Z79.899 Other long term (current) drug therapy; Z79.1 Long term (current) use of non-steroidal anti-inflammatories (NSAID); W18.09XA Striking against other object with subsequent fall, initial encounter; Y93.89 Activity, other specified; Y92.89 Other specified places as the place of occurrence of the external cause; Y99.8 Other external cause status

== ENCOUNTER 2019-03-12 10:48 | Emergency (ER) | payer SELFPAY ==
--- NOTE | 2019-03-12 11:44 | Event Note ---
ED Screening Note Date of service: 03/12/19 Time: 11:42 ED Screening Note: Pt complains of sudden onset of right great toe pain x 5 days denies hx of gout, but admit to Fhx pain 02/07 denies injury This initial assessment/diagnostic orders/clinical plan/treatment(s) is/are subject to change based on patients health status, clinical progression and re- assessment by fellow clinical providers in the ED. Further treatment and workup at subsequent clinical providers discretion. Patient/guardian urged not to elope from the ED as their condition may be serious if not clinically assessed and managed. Initial orders include: XR meds
[2019-03-12] MEDS ORDERED: KETOROLAC 60 MG/2 ML INJ IM ONE (11:46)
[2019-03-12] MEDS ORDERED: DEXAMETHASONE 4 MG TAB PO ONE (11:46)
--- NOTE | 2019-03-12 12:43 | XRay Report ---
RIGHT TOES, 3 VIEWS INDICATION: first MCP joint pain and swelling. COMPARISON: None. IMPRESSION: No acute osseous or soft tissue abnormality. No significant DJD. Signer Name: Humberto Benitez Jr, MD Signed: 03/12/2019 12:38 PM Workstation Name: [id number]
[2019-03-12] MEDS ORDERED: COLCHICINE 0.6 MG CAP PO ONE (13:30)
--- NOTE | 2019-03-12 13:35 | Emergency Department Report ---
ED Extremity Problem HPI - General Chief complaint: Extremity Injury, Lower Stated complaint: RT FOOT PAIN Time Seen by Provider: 03/12/19 11:40 Source: patient Mode of arrival: Wheelchair Limitations: No Limitations - History of Present Illness Initial comments: 48-year-old female presents to the emergency room complaining of right foot ankle pain times several days. Patient denies any fall or injury. Patient states that her foot is swollen and red. Patient states the pain is shooting down to her big toe patient was seen recently for the same. Patient was prescribed Tylenol No. 3 for pain management on 02/07/2019. Patient has a history of arthritis asthma she's had a lumpectomy, bone spurs, tubal ligation and tonsillectomy. She has no known drug allergies. MD Complaint: joint swelling, joint paint Onset/Timin -: days(s) Location: right, toe (great) History of Same: Yes Severity scale (0 -10): 8 Quality: stabbing, aching, sharp Consistency: intermittent Improves with: immobilization, elevation Worsens with: weight bearing, walking - Related Data Previous Rx's Medication Instructions Recorded Last Taken Type ALBUTEROL Inhaler (OR & NICU) 2 puff IH QID PRN 30 Days 06/05/18 Unknown Rx [Proair] inhalation Azithromycin [Zithromax TAB] 500 mg PO QDAY #4 tablet 06/05/18 Unknown Rx oxyCODONE /ACETAMINOPHEN [Percocet 2 tab PO Q6H PRN #10 tablet 06/05/18 Unknown Rx 5/325 mg] predniSONE [Deltasone] 20 mg PO QDAY #5 tab 06/05/18 Unknown Rx Acetaminophen [Non-Aspirin Extra 500 mg PO Q6HR PRN #30 tablet 09/24/18 Unknown Rx Strength] Albuterol Sulfate [Proair 90 mcg IH Q4HR PRN #2 aer.pow.ba 09/24/18 Unknown Rx Respiclick] Benzonatate [Tessalon Perles] 100 mg PO Q8HR PRN #30 capsule 09/24/18 Unknown Rx Fluticasone [Flonase] 1 spray NS QDAY #1 bottle 09/24/18 Unknown Rx Ibuprofen [Motrin] 600 mg PO Q8H PRN #30 tablet 09/24/18 Unknown Rx Nicotine [Habitrol] 21 mg TD DAILY #30 patch 09/24/18 Unknown Rx Salmeterol Xinafoate [Serevent 50 mcg IH BID #1 blst.w.dev 09/24/18 Unknown Rx Diskus] Acetaminophen/Codeine [Tylenol 1 tab PO Q6H PRN #12 tab 03/10/19 Unknown Rx /Codeine # 3 tab] Indomethacin 50 mg PO Q8H #15 capsule 03/12/19 Unknown Rx Prednisone [predniSONE 10 mg 10 mg PO .TAPER #1 tab.ds.pk 03/12/19 Unknown Rx (6-Day Pack, 21 Tabs)] Allergies Allergy/AdvReac Type Severity Reaction Status Date / Time No Known Allergies Allergy Verified 09/24/18 11:55 ED Review of Systems ROS: Stated complaint: RT FOOT PAIN Other details as noted in HPI Comment: All other systems reviewed and negative ED Past Medical Hx - Past Medical History Previous Medical History?: Yes Hx Congestive Heart Failure: No Hx Diabetes: No Hx Arthritis: Yes Hx Asthma: Yes Hx COPD: No - Surgical History Past Surgical History?: Yes Additional Surgical History: lumpectomy. bone spurs. tubal ligation. tonsillectomy - Social History Smoking Status: Current Every Day Smoker Substance Use Type: Alcohol, Marijuana - Medications Home Medications: Home Medications Medication Instructions Recorded Confirmed Last Taken Type ALBUTEROL Inhaler (OR & NICU) 2 puff IH QID PRN 30 Days 06/05/18 Unknown Rx [Proair] inhalation Azithromycin [Zithromax TAB] 500 mg PO QDAY #4 tablet 06/05/18 Unknown Rx oxyCODONE /ACETAMINOPHEN [Percocet 2 tab PO Q6H PRN #10 tablet 06/05/18 Unknown Rx 5/325 mg] predniSONE [Deltasone] 20 mg PO QDAY #5 tab 06/05/18 Unknown Rx Acetaminophen [Non-Aspirin Extra 500 mg PO Q6HR PRN #30 tablet 09/24/18 Unknown Rx Strength] Albuterol Sulfate [Proair 90 mcg IH Q4HR PRN #2 aer.pow.ba 09/24/18 Unknown Rx Respiclick] Benzonatate [Tessalon Perles] 100 mg PO Q8HR PRN #30 capsule 09/24/18 Unknown Rx Fluticasone [Flonase] 1 spray NS QDAY #1 bottle 09/24/18 Unknown Rx Ibuprofen [Motrin] 600 mg PO Q8H PRN #30 tablet 09/24/18 Unknown Rx Nicotine [Habitrol] 21 mg TD DAILY #30 patch 09/24/18 Unknown Rx Salmeterol Xinafoate [Serevent 50 mcg IH BID #1 blst.w.dev 09/24/18 Unknown Rx Diskus] Acetaminophen/Codeine [Tylenol 1 tab PO Q6H PRN #12 tab 03/10/19 Unknown Rx /Codeine # 3 tab] Indomethacin 50 mg PO Q8H #15 capsule 03/12/19 Unknown Rx Prednisone [predniSONE 10 mg 10 mg PO .TAPER #1 tab.ds.pk 03/12/19 Unknown Rx (6-Day Pack, 21 Tabs)] ED Physical Exam - General Limitations: No Limitations General appearance: alert, in no apparent distress - Head Head exam: Present: atraumatic, normocephalic - ENT ENT exam: Present: mucous membranes moist - Expanded Lower Extremity Exam Right Foot/Toe exam: Present: full ROM, tenderness, swelling, erythema Neuro vascular tendon exam: Present: no vascular compromise - Neurological Exam Neurological exam: Present: alert, oriented X3 - Psychiatric Psychiatric exam: Present: normal affect, normal mood - Skin Skin exam: Present: warm, dry, intact, normal color. Absent: rash ED Course Vital Signs 03/12/19 11:41 Temperature 98.4 F Pulse Rate 105 H Respiratory 18 Rate Blood Pressure 119/74 O2 Sat by Pulse 99 Oximetry ED Medical Decision Making - Medical Decision Making 48-year-old female presents to the emergency room complaining of right foot ankle pain times several days. Patient denies any fall or injury. Patient states that her foot is swollen and red. Patient states the pain is shooting down to her big toe patient was seen recently for the same. Patient was prescribed Tylenol No. 3 for pain management on 02/07/2019. Patient has a his tory of arthritis asthma she's had a lumpectomy, bone spurs, tubal ligation and tonsillectomy. She has no known drug allergies. She was diagnosed with gout. Patient be discharged home on indomethacin and prednisone pack. Critical care attestation.: If time is entered above; I have spent that time in minutes in the direct care of this critically ill patient, excluding procedure time. ED Disposition Clinical Impression: Gout Disposition: [id number] TO HOME OR SELFCARE Is pt being admited?: No Does the pt Need Aspirin: No Condition: Stable Instructions: Acute Gouty Arthritis (ED), Low Purine Diet (ED) Prescriptions: Indomethacin 50 mg PO Q8H #15 capsule Prednisone [predniSONE 10 mg (6-Day Pack, 21 Tabs)] 10 mg PO .TAPER #1 tab.ds.pk Referrals: PRIMARY CARE, [Primary Care Provider] - 3-5 Days [facility] [Outside] - 3-5 Days
[2019-03-12 14:05] VITALS: BP 116/93
== END 2019-03-12 14:05 | disposition home or self-care (01) ==
LOC: ED 10:48
DX: M10.9 Gout, unspecified (principal); M19.90 Unspecified osteoarthritis, unspecified site; F17.200 Nicotine dependence, unspecified, uncomplicated; F12.10 Cannabis abuse, uncomplicated; Z87.09 Personal history of other diseases of the respiratory system; Z98.51 Tubal ligation status; Z98.890 Other specified postprocedural states; Z79.1 Long term (current) use of non-steroidal anti-inflammatories (NSAID); Z79.899 Other long term (current) drug therapy
CPT/HCPCS: 73660; 96372; 99283; J1885; J8540